=== PATIENT | female | born 1960 | race Caucasian/White ===

== ENCOUNTER → 2023-10-03 | Outpatient (CLI) | payer MEDICARE ==
--- NOTE | 2023-10-03 15:44 | P.SLEEP ---
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 During recent trips to [place] with her girlfriends, she has been told that she had a very loud snoring and possibly quitting breathing at nighttime. For that reason, the patient came in for further investigation. She has chronic grinding of the teeth and occasionally she uses a bite for clenching. The patient has gained some weight over the years in order of 5-6 pounds. She wakes up having choking and gasping and her sleep is fragmented as the patient wakes up at least 2-3 times in the middle of the night. She wakes up also with a dry mouth. She is a nose breather. No major hypersomnia or sleepiness. She goes to bed at around 11 PM. Wakes up 6 AM in the morning. She reports approximately 5-6 hours of uninterrupted sleep. He does not fall asleep while driving her car. She does not take frequent naps during the day. No sleep paralysis. No hallucinations. No cataplexy. He has other comorbidities including breast cancer and she has undergone surgery, mild degree of Crohn's disease which is well treated and diverticulosis patient also has hyperlipidemia. No previous evaluations for sleep apnea has been done. Is a nonsmoker. No excessive consumption of alcohol and she drinks wine socially. Her sister has obstructive sleep apnea. No restlessness and lower extremities. No nighttime chest pain or shortness of breath or seizure. She has daytime heartburn. Review of Systems Constitutional: Reports as per HPI Eyes: denies as per HPI, denies blurred vision, denies bulging eye, denies decreased vision, denies diplopia, denies discharge, denies dry eye, denies irritation, denies itching, denies pain, denies photophobia, denies loss of peripheral vision, denies loss of vision, denies tunnel vision/blind spots Ears: deny: decreased hearing, ear discharge, earache, tinnitus Ears, nose, mouth and throat: Reports as per HPI (Grinding of the teeth and clenching) Breasts: absent: as per HPI, change in shape, gynecomastia, masses, nipple discharge, pain, skin changes, swelling Breasts: Reports as per HPI (Previous history of breast surgery) Cardiovascular: Reports as per HPI Respiratory: Reports snoring Gastrointestinal: Reports as per HPI, Reports heartburn Genitourinary: Reports as per HPI Menstruation: Reports as per HPI Musculoskeletal: Reports as per HPI Musculoskeletal: absent: ankle pain, ankle stiffness, ankle swelling Integumentary: Reports as per HPI Neurological: Reports as per HPI Psychiatric: Reports as per HPI Endocrine: Reports as per HPI Past Medical History Additional Past Medical History / Comment(s): Breast cancer, hyperlipidemia, inflammatory bowel disease in the form of Crohn's disease and diverticulosis Past Surgical History: Breast Surgery Additional Past Surgical History / Comment(s): Previous colonoscopy, hysterectomy total, lumpectomy left breast Past Psychological History: No Psychological Hx Reported Smoking Status: Never smoker Past Alcohol Use History: Occasional Past Drug Use History: None Reported Medications and Allergies Home Medications and Allergies Comment(s): Home medications include pantoprazole 20 mg twice a day, losartan 50 mg by mouth daily, sulfasalazine 500 mg by mouth daily, metoprolol 50 mg by mouth daily and Effexor 37.5 mg by mouth daily Physical Exam BP is 126/85, pulse is 79, respirations 16, temperature is 98.0, current [place] score is at 5. Body mass index is 26.3. Neck size is 14 inches. Weight is 173. Head exam was generally normal. There was no scleral icterus or corneal arcus. Mucous membranes were moist. Neck was supple and without jugular venous distension, thyromegaly, or carotid bruits. Carotids were easily palpable bilaterally. There was no adenopathy. The patient is not diabetic left foot with significant crowding of the posterior oropharynx. No significant overbite. Lungs were clear to auscultation and percussion, and with normal diaphragmatic excursion. No wheezes or rales were noted. Cardiac exam revealed the PMI to be normally situated and sized. The rhythm was regular and no extrasystoles were noted during several minutes of auscultation. The first and second heart sounds were normal and physiologic splitting of the second heart sound was noted. There were no murmurs, rubs, clicks, or gallops. Abdominal exam revealed normal bowel sounds. The abdomen was soft, non-tender, and without masses, organomegaly, or appreciable enlargement of the abdominal aorta. Examination of the extremities revealed easily palpable radial, femoral and pedal pulses. There was no cyanosis, clubbing or edema. Examination of the skin revealed no evidence of significant rashes, suspicious appearing nevi or other concerning lesions. Neurologically, the patient is awake and alert and the patient does not have any focal neurological deficit. Cranial nerves are essentially intact. Assessment and Plan Plan: Loud snoring and sleep fragmentation and possible obstructive sleep apnea. The patient is requesting further evaluation. No major hypersomnia or sleepiness. The patient has an [place] score of 5. She is wearing a bite guard regarding chronic grinding/clenching. He is interested in oral appliance should she have an underlying obstructive sleep apnea that needs to be treated. He didn't deny genital. 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 Hypertension History of Crohn's disease, currently under adequate treatment History of breast cancer with a previous left lumpectomy followed by chemoradiation therapy Plan Will proceed with a home sleep study to evaluate the presence of sleep apnea and based on the results of the home sleep study will make further recommendations and treatment is needed. The patient will be encouraged to lose weight. The patient will be asked to sleep on her side. About alcohol at least hours prior to going to bed. No major hypersomnia or impairment of daytime functionality at this point in time. Further recommendations to follow based on the results of the home sleep study. Sleep Note - Sleep Note Sleep Note: Temperature: Pulse Rate: Respiratory Rate: Blood Pressure: SpO2: Height: Weight: BMI: Neck Circumference:
== END ==
LOC: 3 N SLEEP 14:38
PROVIDERS: ATTEND Internal Medicine Critical Care Medicine
DX: G47.33 Obstructive sleep apnea (adult) (pediatric) (principal); I10 Essential (primary) hypertension; K50.90 Crohn's disease, unspecified, without complications; Z51.11 Encounter for antineoplastic chemotherapy; E78.5 Hyperlipidemia, unspecified; K57.30 Diverticulosis of large intestine without perforation or abscess without bleeding; Z85.3 Personal history of malignant neoplasm of breast

== ENCOUNTER → 2023-10-17 | Outpatient (CLI) | payer MEDICARE ==
--- NOTE | 2023-10-23 00:11 | SLS ---
SLEEP STUDY Home sleep study. HISTORY OF PRESENT ILLNESS: This is a 63-year-old female patient, presented to the sleep center with concerns of sleep apnea. The patient was having loud snoring and sleep fragmentation. She has an Tyn[place] score of 5. She also has history of chronic grinding of the teeth, wearing a bite block. She has hypertension, Crohn's disease, and history of breast cancer. PERTINENT PHYSICAL FINDINGS: The patient has a body mass index of 26 with a weight of 173 pounds. TECHNICAL DESCRIPTION: The [employer] system was used to complete the home sleep study. This is a type 3 home sleep study. Total recording duration was 8 hours and 10 minutes and the study started at 9:50 p.m., ended at 6 a.m. in the morning. The patient had more than 7 hours of flow on oxygen saturation evaluation as such the study was adequate. RESULTS: Respiratory analysis showed a total of 84 obstructive hypopneas and 260 obstructive apneas. Resulting AHI was 48, consistent with severe obstructive sleep apnea. OXYGENATION ANALYSIS: A total of 312 oxygen desaturations were counted. Baseline pulse ox was 98%. Average pulse ox at night was 92%. Lowest pulse ox of 76% and the patient spent approximately 1 hour and 3 minutes of sleep time below pulse ox of 89%. CARDIAC SUMMARY: Average heart rate was 65 minutes, minimum heart rate 58, maximum heart rate was 84, rhythm was sinus. ASSESSMENT: 1. Severe obstructive sleep apnea with an AHI of 48.8. 2. Nocturnal oxygen desaturation with a minimum pulse ox of 76%. 3. Grinding of the teeth. 4. History of breast cancer. 5. Inflammatory bowel disease. 6. Hyperlipidemia. PLAN: We will discuss findings with the patient. The patient is a case of severe obstructive sleep apnea. She will benefit from CPAP therapy. The patient will be asked to come into the sleep center to undergo a CPAP titration. MMODL / IJN: [id number] /
== END ==
LOC: 3 N SLEEP 16:25
PROVIDERS: ATTEND Internal Medicine Critical Care Medicine
DX: G47.33 Obstructive sleep apnea (adult) (pediatric) (principal); G47.36 Sleep related hypoventilation in conditions classified elsewhere; G47.63 Sleep related bruxism; E78.5 Hyperlipidemia, unspecified; K58.9 Irritable bowel syndrome, unspecified; Z85.3 Personal history of malignant neoplasm of breast

== ENCOUNTER 2023-11-17 07:13 | Day surgery (SDC) | payer MEDICARE ==
[~2023-11-17 07:13] MED LIST: LIDOCAINE 1% (10MG/ML) FOR IV START INTRADERMA PRN; ONDANSETRON 4 MG/2 ML VIAL IVP PRN
[2023-11-17] MEDS: LIDOCAINE 1% (10MG/ML) FOR IV START INTRADERMA ONE (07:42)
[2023-11-17] MEDS: LACTATED RINGERS 1,000 ML IV SCH (07:42)
[2023-11-17 08:10] VITALS: TEMP 97
[2023-11-17] MEDS ORDERED: PROPOFOL 10 MG/ML 20 ML VIAL IV ONE (08:18)
[2023-11-17] MEDS ORDERED: LIDOCAINE 1% INJ 10MG/ML (20 ML MDV) ONE (08:18)
--- NOTE | 2023-11-17 08:47 | P.PCN ---
Date of Procedure: 11/17/23 Procedure(s) Performed: BRIEF HISTORY: Patient is a 63-year-old pleasant white female scheduled for an elective colonoscopy as a part of evaluation of intermittent lower abdominal pain associated with diarrhea for the last few weeks duration. She had Small amount of rectal bleeding also. She was diagnosed with Crohn's ileitis [place] [address] Liu in [facility]. Maintained on sulfasalazine 5 mg twice daily. PROCEDURE PERFORMED: Colonoscopy with biopsy. PREOPERATIVE DIAGNOSIS: Abdominal pain, rectal bleeding, history of Crohn's ileitis. IV sedation per Anesthesia. PROCEDURE: After informed consent was obtained, the patient, was brought into the endoscopy unit. IV sedation was administered by Anesthesia under continuous monitoring. Digital rectal examination was normal. Initially the Olympus CF-160 flexible video colonoscope was then inserted in the rectum, gradually advanced into the cecum without any difficulty. Careful examination was performed as the scope was gradually being withdrawn. Ileocecal valve and the appendiceal orifice were visualized and appeared normal. Prep was excellent. The Olympus CXX cm visualized and appeared normal. Biopsies were done from this area. The appeared normal. In the descending colon there was a 3 mm polyp that was removed by cold biopsy. Scattered left sided diverticula seen. In the sigmoid: There was another 3 mm polyp that was removed by cold biopsy. Mucosa of the cecum, ascending colon, transverse colon, descending colon, sigmoid colon, and rectum appeared normal. Retroflexion was performed in the rectum and no lesions were seen. The patient tolerated the procedure well. IMPRESSION: Normal-appearing terminal ileum with no evidence of active Crohn's ileitis 3 mm descending colon polyp status post-cold biopsy 3 mm sigmoid: Polyp was cold biopsy Scattered sigmoid diverticulosis RECOMMENDATIONS: Findings of this examination were discussed with the patient as well as a family. She was advised to follow with the biopsy results. If the biopsy reveals adenoma she can have a repeat colonoscopy in 5 years. Continue with her current medications and follow up in office in 3-4 weeks.
[2023-11-17 09:20] VITALS: BP 152/87; PULSE 66
[2023-11-17 09:21] VITALS: RESP 20
== END 2023-11-17 09:27 | disposition home or self-care (01) ==
LOC: ORWHC2ENDO 07:13
PROVIDERS: ATTEND Internal Medicine Gastroenterology
DX: K52.9 Noninfective gastroenteritis and colitis, unspecified (principal); K57.31 Diverticulosis of large intestine without perforation or abscess with bleeding; I10 Essential (primary) hypertension; E78.5 Hyperlipidemia, unspecified; J45.909 Unspecified asthma, uncomplicated; K21.9 Gastro-esophageal reflux disease without esophagitis; Z87.19 Personal history of other diseases of the digestive system; Z85.3 Personal history of malignant neoplasm of breast; Z79.899 Other long term (current) drug therapy
CPT/HCPCS: 88305; 45380; J2001; J2704

== ENCOUNTER 2023-12-20 19:41 | Outpatient (CLI) | payer MEDICARE ==
--- NOTE | 2023-12-26 22:12 | P.PCN ---
Date of Procedure: 12/20/23 Operative Findings: CPAP titration study Date of services 12/20/2023 Pertinent history 63-year-old female patient diagnosed having severe obstructive sleep apnea with an AHI of 48 associated with some nocturnal oxygen saturations. She has history of breast cancer, hyperlipidemia and inflammatory bowel disease. The patient is presenting to the sleep center to undergo CPAP titration. Physical findings The patient has a height of 5 feet and 8 inches, weight is 173 pounds with a body mass index of 26.3 Technical description The patient was studied using a standard complex polysomnography protocol that included recording of the 2 EKG, Central, occipital and frontal EEG, right and left outer canthus EOG, submental EMG, right and left anterior tibialis EMG, respiratory airflow by thermocouple and or pressure/flow transducer, respiratory efforts by abdominal and thoracic PVDF belts, oxygen saturation by cable oximetry. Position by observation synchronized the PSG. Stepwise CPAP titration was don to eliminate obstructive respiratory events. eEquipment used: [employer]. Sleep architecture The total recording duration was 411 minutes. The total sleep time was 278.0 minutes. The latency to sleep onset was 88.0 minutes. Overall sleep efficiency was calculated to be 67.6%. The sleep architecture was catheterized by 26.3% REM sleep, 1.1% stage I sleep, 68.5% stage II sleep of 4.1% stage III sleep. The total arousal index was 4.5. The wake after sleep onset time was 45 minute s. CPAP titration summary The patient was started on CPAP therapy initially at a pressure of 4 cm of water and pressure was gradually increased maintenance of 1 cm to reach a maximum pressure of 11 cm of water. There was considerable improvement in obstructive respiratory events. Pressures of 10 and 11 cm of water. This was successful titration. All sleep stages were encountered. The patient encountered REM and non-REM sleep during the titration. The study was also done in various body positions including supine body position. There was improvement in oxygenation and illumination of obstructive respiratory events at CPAP pressures of 10 and 11 cm of water Sleep continue with the summary The patient had total of 21 arousals with an arousal index of 4.5. Respiratory arousal index was 0 Periodic limb movement activity There was a total of 3 periodic limb movements with arousals with an index of 0.6 Cardiac summary The average heart rate was 61 with a minimum heart rate of 58 and the maximum heart rate of 67 Assessment Severe symptomatic SENAIT with an AHI of 48. The patient underwent a successful CPAP titration. There was elimination of the obstructive respiratory events and improvement the patient's oxygenation. History of breast cancer History of inflammatory bowel disease Hyperlipidemia Plan Initiate CPAP therapy at a pressure of 10 cm of water with a C-Flex of 3. The patient is going to be provided AirFit P10 small size nasal pillows. Optimize sleep hygiene measures. Maintain regular sleep schedule. See me back in the office in 30 to 90 days to assess clinical response and compliancy. Will continue to follow.
== END 2023-12-21 06:20 | disposition home or self-care (01) ==
LOC: 3 N SLEEP 19:41
PROVIDERS: ATTEND Internal Medicine Critical Care Medicine
DX: G47.33 Obstructive sleep apnea (adult) (pediatric) (principal); G47.8 Other sleep disorders; K63.9 Disease of intestine, unspecified; E78.5 Hyperlipidemia, unspecified; Z99.89 Dependence on other enabling machines and devices; Z85.3 Personal history of malignant neoplasm of breast
CPT/HCPCS: 95811

== ENCOUNTER → 2024-04-11 | Outpatient (CLI) | payer MEDICARE ==
[2024-04-11 11:19] VITALS: BP 159/93; PULSE 66; RESP 16; TEMP 97.9
--- NOTE | 2024-04-11 13:41 | P.PROGSL ---
Subjective DATE: 04/11/2024 FOLLOW UP VISIT. Patient with obstructive sleep apnea hypopnea syndrome return to sleep center for follow-up visit. Recently patient had sleep study which documented obstructive sleep apnea hypopnea syndrome. Patient was initiated on PAP therapy and today is first visit after treatment was started. I explained results of home sleep apnea test to the patient in details. She has severe obstructive sleep apnea hypopnea syndrome. Patient was able to use PAP equipment every night for the whole night. For the last months patient to use CPAP equipment slightly less because she did not feel comfortable after your bilateral mastectomy in March 2024. The patient does not have significant problems with the mask, PAP pressure and humidification, although sometimes she possibly open her mouth during the sleep. [place] sleepiness scale is 6, which is normal. I checked information from PAP unit. PAP unit pressure 10 cm H2O. Usage is 94% and 87% for more then 4 hours, average 6.5 hours per night in December and January 2024. Leak is slightly increased to 33.5 l/m, which is in acceptable range. Apnea Hypopnea Index is presently 3.0, which is normal. MEDICATIONS: Please see below During physical exam: GENERAL: A pleasant patient without any distress. VITAL SIGNS: Please see below. HEENT: PERRLA, EOMI.low position of soft palate. NECK: Supple. No JVD. LUNGS: Clear to percussion and to auscultation. Good air exchange. No wheezing or rhonchi. HEART: S1, S2 regular. ABDOMEN: Soft and nontender.[] EXTREMITIES: No clubbing or cyanosis. 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 No focal deficit. Impressions: 1. Obstructive sleep apnea-hypopnea syndrome. Patient demonstrated good compliance with treatment, benefiting from treatment. 2. Status post bilateral mastectomy in March 2024 for breast cancer. 3. History of Crohn disease. 4. Hyperlipidemia. Plan: 1. Continue using PAP equipment every night for the whole night, preferably with chinstrap. 2. To change air filter at least 1-2 times per month. 3. PAP unit should stay lower then position of the head. 4. Advised patient to remove all remaining water from humidifier canister daily and make it dry after each usage. Refill canister with fresh distilled water before each usage. 5. Sleep hygiene with regular time in bed for at least 8 hours. 6. Precautions related to driving. No driving if feel any sleepiness. 7. I will maintain prescription for PAP supplies including mask, tube, filters. 8. Follow up visit in 6 months or earlier if patient has any problems. 9. Watching weight. Thank you very much for allowing me to participate in the management of your patient. Nicholas Carrasco MD, PhD, FAASM. Diplomat of [place] [employer], Sleep Medicine Board by [place] [employer]st of [facility] [place] Objective - Vital Signs Vital Signs: Vital Signs Temp 97.9 F 04/11/24 11:18 Pulse 66 04/11/24 11:18 Resp 16 04/11/24 11:18 BP 159/93 04/11/24 11:18 Pulse Ox 98 04/11/24 11:18 FiO2 Intake & Output 04/10/24 04/11/24 04/11/24 18:59 06:59 18:59 Weight 78.471 kg Home Medications: Home Medications Medication Instructions Recorded Confirmed Type Cholecalciferol [Vitamin D3 (25 25 mcg PO DAILY 11/15/23 11/15/23 History Mcg = 1000 Iu)] L.acidoph,Paracasei, B.lactis 1 each PO DAILY 11/15/23 11/15/23 History [Probiotic] Losartan Potassium 50 mg PO QAM 11/15/23 11/15/23 History Metoprolol Succinate (ER) [Toprol 50 mg PO HS 11/15/23 11/15/23 History Xl] Multivitamins, Thera [Multivitamin 1 tab PO DAILY 11/15/23 11/15/23 History (formulary)] Pantoprazole Sodium [Protonix] 20 mg PO BID 11/15/23 11/15/23 History Prebiotic 1 tab PO DAILY 11/15/23 11/15/23 History Rosuvastatin Calcium 5 mg PO DAILY 11/15/23 11/15/23 History Venlafaxine HCl ER [Effexor Xr] 37.5 mg PO HS 11/15/23 11/15/23 History sulfaSALAzine [Azulfidine] 500 mg PO BID 11/15/23 11/15/23 History
== END ==
LOC: 3 N SLEEP 11:09
PROVIDERS: ATTEND Internal Medicine
DX: G47.33 Obstructive sleep apnea (adult) (pediatric) (principal); E78.5 Hyperlipidemia, unspecified; Z85.3 Personal history of malignant neoplasm of breast; Z99.89 Dependence on other enabling machines and devices; Z90.13 Acquired absence of bilateral breasts and nipples; Z87.19 Personal history of other diseases of the digestive system
CPT/HCPCS: 99212